=== PATIENT | male | born 1990 | race Caucasian/White ===

== ENCOUNTER 2016-03-10 15:57 | Emergency (ER) | payer OTHER ==
[~2016-03-10] VITALS: Ht 188 cm; Wt 97.5 kg
[~2016-03-10 15:57] MED LIST: CLON2TAB; HYDR-548
[2016-03-10 16:06] VITALS: BP 151/96
[2016-03-10] MEDS ORDERED: LORAZEPAM 1 MG TABLET ONE (16:44)
[2016-03-10] MEDS ORDERED: oxyCODONE/APAP (5/325 MG) 1 UDTAB TABLET ONE (16:44)
[2016-03-10] MEDS: oxyCODONE/APAP (5/325 MG) 1 UDTAB TABLET PO ONE (16:49)
[2016-03-10] MEDS: LORAZEPAM 1 MG TABLET PO ONE (16:49)
== END 2016-03-10 16:52 | disposition home or self-care (01) ==
LOC: ER 16:00
DX: M54.9 Dorsalgia, unspecified (principal); G89.29 Other chronic pain; F32.9 Major depressive disorder, single episode, unspecified; F41.9 Anxiety disorder, unspecified; Z88.1 Allergy status to other antibiotic agents; Z59.0 Homelessness
CPT/HCPCS: 99283; A4606; Z7610

== ENCOUNTER 2016-04-17 16:35 | Emergency (ER) | payer MEDICAID, OTHER ==
[~2016-04-17] VITALS: Ht 188 cm; Wt 97.5 kg
[2016-04-17 16:50] VITALS: BP 128/74
== END 2016-04-17 17:55 | disposition home or self-care (01) ==
LOC: ER 16:38
DX: M54.6 Pain in thoracic spine (principal); G89.29 Other chronic pain; F41.9 Anxiety disorder, unspecified; Z88.1 Allergy status to other antibiotic agents; F10.10 Alcohol abuse, uncomplicated; F32.9 Major depressive disorder, single episode, unspecified
CPT/HCPCS: 99281; A4606; Z7610; Z7502

== ENCOUNTER 2016-04-29 12:33 | Emergency (ER) | payer MEDICAID ==
[~2016-04-29] VITALS: Ht 188 cm; Wt 97.5 kg
[2016-04-29 12:39] VITALS: BP 162/87
[2016-04-29] MEDS ORDERED: oxyCODONE/APAP (5/325 MG) 1 UDTAB TABLET ONE (13:10)
[2016-04-29] MEDS ORDERED: oxyCODONE/APAP (5/325 MG) 1 UDTAB TABLET PO ONE (13:30)
== END 2016-04-29 13:16 | disposition home or self-care (01) ==
LOC: ER 12:35
DX: G89.29 Other chronic pain (principal); F41.9 Anxiety disorder, unspecified; F32.9 Major depressive disorder, single episode, unspecified; Z88.1 Allergy status to other antibiotic agents; F10.10 Alcohol abuse, uncomplicated
CPT/HCPCS: 99282; A4606; Z7610

== ENCOUNTER 2016-05-05 05:50 | Emergency (ER) | payer MEDICAID ==
[~2016-05-05] VITALS: Ht 188 cm; Wt 97.5 kg
[2016-05-05 06:05] VITALS: BP 153/83
[2016-05-05] MEDS ORDERED: HYDROCODONE/APAP 10/325MG 1 EA TABLET ONE (06:28)
[2016-05-05] MEDS ORDERED: HYDROCODONE/APAP 10/325MG 1 EA TABLET PO ONE (06:30)
== END 2016-05-05 06:30 | disposition home or self-care (01) ==
LOC: ER 05:52
DX: M54.9 Dorsalgia, unspecified (principal); G89.29 Other chronic pain; F41.9 Anxiety disorder, unspecified; F32.9 Major depressive disorder, single episode, unspecified; Z88.8 Allergy status to other drugs, medicaments and biological substances; Z76.5 Malingerer [conscious simulation]
CPT/HCPCS: A4606; Z7610

== ENCOUNTER 2016-05-11 01:15 | Emergency (ER) | payer MEDICAID ==
[~2016-05-11] VITALS: Ht 188 cm; Wt 97.5 kg
[2016-05-11 01:21] VITALS: BP 151/86
[2016-05-11] MEDS ORDERED: HYDROCODONE/APAP 10/325MG 1 EA TABLET PO ONE (02:00)
[2016-05-11] MEDS ORDERED: HYDROCODONE/APAP 10/325MG 1 EA TABLET ONE (02:00)
== END 2016-05-11 02:12 | disposition home or self-care (01) ==
LOC: ER 01:15
DX: G89.29 Other chronic pain (principal); Z76.5 Malingerer [conscious simulation]; Z88.8 Allergy status to other drugs, medicaments and biological substances
CPT/HCPCS: 99283; A4606; Z7610

== ENCOUNTER 2016-11-03 18:53 | Emergency (ER) | payer MEDICAID, OTHER ==
[~2016-11-03] VITALS: Ht 188 cm; Wt 99.8 kg
[2016-11-03 19:14] VITALS: BP 152/75
== END 2016-11-03 19:47 | disposition home or self-care (01) ==
LOC: ER 18:55
DX: Z76.5 Malingerer [conscious simulation] (principal); Z88.1 Allergy status to other antibiotic agents
CPT/HCPCS: A4606; Z7502; Z7610

== ENCOUNTER 2016-11-12 14:24 | Emergency (ER) | payer OTHER ==
[~2016-11-12] VITALS: Ht 188 cm; Wt 99.8 kg
[2016-11-12 14:24] VITALS: BP 132/77
== END 2016-11-12 15:01 | disposition home or self-care (01) ==
LOC: ER 14:25
DX: Z76.0 Encounter for issue of repeat prescription (principal); M54.5 Low back pain; G89.29 Other chronic pain; Z76.5 Malingerer [conscious simulation]
CPT/HCPCS: A4606; Z7502; Z7610

== ENCOUNTER 2016-11-19 08:47 | Emergency (ER) | payer OTHER ==
[~2016-11-19] VITALS: Ht 188 cm; Wt 102.1 kg
[2016-11-19 08:53] VITALS: BP 131/69
[2016-11-19] MEDS ORDERED: ONDANSETRON 4 MG TAB.RAPDIS ONE (09:23)
[2016-11-19] MEDS ORDERED: HYDROCODONE/APAP 10/325MG 1 EA TABLET ONE (09:23)
[2016-11-19] MEDS ORDERED: HYDROCODONE/APAP 10/325MG 1 EA TABLET PO ONE (09:30)
[2016-11-19] MEDS ORDERED: ONDANSETRON 4 MG TAB.RAPDIS SL ONE (09:30)
== END 2016-11-19 10:18 | disposition home or self-care (01) ==
LOC: ER 08:48
DX: S93.401A Sprain of unspecified ligament of right ankle, initial encounter (principal); Z76.5 Malingerer [conscious simulation]; Z88.1 Allergy status to other antibiotic agents; X58.XXXA Exposure to other specified factors, initial encounter; Y93.89 Activity, other specified; Y92.89 Other specified places as the place of occurrence of the external cause; Y99.8 Other external cause status
CPT/HCPCS: 73610; 73630; 99284; A4606; Q0162; Z7610

== ENCOUNTER 2016-12-01 11:26 | Emergency (ER) | payer OTHER ==
[~2016-12-01] VITALS: Ht 188 cm; Wt 99.8 kg
[2016-12-01 11:41] VITALS: BP 154/98
[2016-12-01] MEDS ORDERED: KETOROLAC TROMETHAMINE INJ 30 MG/ML VIAL ONE (12:08)
[2016-12-01] MEDS ORDERED: KETOROLAC TROMETHAMINE INJ 60 MG/2 ML VIAL IM ONE (12:30)
== END 2016-12-01 12:28 | disposition home or self-care (01) ==
LOC: ER 11:30
DX: M54.5 Low back pain (principal); G89.29 Other chronic pain; F10.10 Alcohol abuse, uncomplicated; Z88.8 Allergy status to other drugs, medicaments and biological substances
CPT/HCPCS: 99282; A4606; Z7610; J1885

== ENCOUNTER 2017-04-25 12:07 | Emergency (ER) | payer OTHER ==
[~2017-04-25] VITALS: Ht 188 cm; Wt 99.8 kg
[2017-04-25 12:28] VITALS: BP 146/78
[2017-04-25] MEDS ORDERED: clonazePAM 1 MG TABLET PO ONE (13:00)
[2017-04-25] MEDS ORDERED: clonazePAM 1 MG TABLET ONE (13:03)
--- NOTE | 2017-04-25 13:34 | NUR ---
PENDING DISCHARGE. PT NOT FOUND IN HIS CHAIR. [employer] WORK DIRECTOR NOTIFIED
== END 2017-04-25 13:55 | disposition home or self-care (01) ==
LOC: ER 12:12
DX: F41.0 Panic disorder [episodic paroxysmal anxiety] (principal); G89.29 Other chronic pain; F10.10 Alcohol abuse, uncomplicated; M54.9 Dorsalgia, unspecified; Z59.0 Homelessness; Z76.5 Malingerer [conscious simulation]; Z88.8 Allergy status to other drugs, medicaments and biological substances
CPT/HCPCS: A4606; Z7610

== ENCOUNTER 2017-05-09 12:20 | Emergency (ER) | payer OTHER ==
[~2017-05-09] VITALS: Ht 188 cm; Wt 99.8 kg
[2017-05-09 13:17] VITALS: BP 169/93
[2017-05-09] MEDS ORDERED: HYDROCODONE/APAP 10/325MG 1 EA TABLET ONE (14:20)
[2017-05-09] MEDS ORDERED: HYDROCODONE/APAP 10/325MG 1 EA TABLET PO ONE (14:30)
== END 2017-05-09 14:26 | disposition home or self-care (01) ==
LOC: ER 12:21
DX: M54.5 Low back pain (principal); G89.29 Other chronic pain; Z76.5 Malingerer [conscious simulation]; F41.9 Anxiety disorder, unspecified; F10.10 Alcohol abuse, uncomplicated
CPT/HCPCS: A4606; Z7610

== ENCOUNTER 2017-05-26 11:29 | Emergency (ER) | payer OTHER ==
[~2017-05-26] VITALS: Ht 188 cm; Wt 99.8 kg
[2017-05-26 11:29] VITALS: BP 160/110
[2017-05-26] MEDS ORDERED: KETOROLAC TROMETHAMINE 15 MG/ML VIAL ONE (11:40)
[2017-05-26] MEDS ORDERED: KETOROLAC TROMETHAMINE INJ 30 MG/ML VIAL IM ONE (12:00)
== END 2017-05-26 12:14 | disposition home or self-care (01) ==
LOC: ER 11:30
DX: G89.29 Other chronic pain (principal); M54.5 Low back pain; F41.9 Anxiety disorder, unspecified; F10.10 Alcohol abuse, uncomplicated
CPT/HCPCS: A4606; J1885; Z7610

== ENCOUNTER 2017-06-26 16:20 | Emergency (ER) | payer OTHER ==
[~2017-06-26] VITALS: Ht 182.9 cm; Wt 74.8 kg
[2017-06-26 16:36] VITALS: BP 141/84
== END 2017-06-26 16:56 | disposition home or self-care (01) ==
LOC: ER 16:21
DX: G89.29 Other chronic pain (principal); M54.5 Low back pain; Z76.5 Malingerer [conscious simulation]; F41.9 Anxiety disorder, unspecified
CPT/HCPCS: A4606; Z7502; Z7610

== ENCOUNTER 2017-08-14 19:51 | Emergency (ER) | payer OTHER ==
[~2017-08-14] VITALS: Ht 188 cm; Wt 99.8 kg
[2017-08-14 19:58] VITALS: BP 158/93
== END 2017-08-14 23:47 | disposition left against medical advice (07) ==
LOC: ER 19:51
DX: G89.29 Other chronic pain (principal); I10 Essential (primary) hypertension; F10.10 Alcohol abuse, uncomplicated; Y90.9 Presence of alcohol in blood, level not specified; Z60.2 Problems related to living alone
CPT/HCPCS: A4606; Z7502; Z7610

== ENCOUNTER 2017-10-15 01:51 | Emergency (ER) | payer OTHER ==
[~2017-10-15] VITALS: Ht 188 cm; Wt 99.8 kg
[2017-10-15 01:55] VITALS: BP 156/110
--- NOTE | 2017-10-15 04:15 | NUR ---
CALLED PT'S NAMES THREE TIMES, NO RESPONSE. WILL TRY AGAIN AT A LATER TIME.
--- NOTE | 2017-10-15 05:16 | NUR ---
CALLED PT'S NAME THREE TIMES, NO RESPONSE. MADE AWARE.
--- NOTE | 2017-10-15 05:48 | NUR ---
CALLED PT'S NAME THREE TIMES, NO RESPONSE AND NO EYE CONTACT BY ANY PERSON IN THE WAITING ROOM. A MAN IN A HOODIE NOTED TO BE SLEEPING WITH NO ARMBAND SEEN. MADE AWARE. WILL TRY AGAIN AT A LATER TIME.
--- NOTE | 2017-10-15 06:24 | NUR ---
pt bib self c/o 10/10 lower back pain. per pt statement has had a herniated disk and is on percocet at home to help with the back pain. pt resting in bed comfortably. no s/s of acute distress or sob noted. being seen by .
[2017-10-15] MEDS ORDERED: oxyCODONE/APAP (5/325 MG) 1 UDTAB TABLET PO ONE (06:30)
[2017-10-15] MEDS ORDERED: oxyCODONE/APAP (5/325 MG) 1 UDTAB TABLET ONE (06:31)
--- NOTE | 2017-10-15 06:40 | NUR ---
percocet 5/325mg 1 tab given po
--- NOTE | 2017-10-15 06:45 | NUR ---
Patient discharged to home in stable condition. Written and verbal after care instructions given. Patient verbalizes understanding of instruction. Instructed patient not to drive, patient stated that he took the bus to the ER and will take the bus back home. Pateint left walking with steady gait. No s/s of acute distress or sob noted.
== END 2017-10-15 06:54 | disposition home or self-care (01) ==
LOC: ER 01:52
DX: M54.5 Low back pain (principal); G89.29 Other chronic pain; I10 Essential (primary) hypertension; Z60.2 Problems related to living alone
CPT/HCPCS: 99282; A4606; Z7610

== ENCOUNTER 2017-10-26 02:09 | Emergency (ER) | payer OTHER ==
[~2017-10-26] VITALS: Ht 182.9 cm; Wt 111.1 kg
--- NOTE | 2017-10-26 03:00 | NUR ---
CALLED PT'S NAME THREE TIMES, NO RESPONSE IN WAITING ROOM, WILL TRY AGAIN AT A LATER TIME.
--- NOTE | 2017-10-26 04:01 | NUR ---
CALLED PT'S NAME THREE TIMES, NO RESPONSE IN WAITING ROOM
[2017-10-26 05:41] VITALS: BP 139/69
[2017-10-26] MEDS ORDERED: oxyCODONE/APAP (5/325 MG) 1 UDTAB TABLET ONE (06:29)
[2017-10-26] MEDS ORDERED: oxyCODONE/APAP (5/325 MG) 1 UDTAB TABLET PO ONE (06:30)
[2017-10-26] MEDS: oxyCODONE/APAP (5/325 MG) 1 UDTAB TABLET PO ONE (06:43)
--- NOTE | 2017-10-26 06:43 | NUR ---
Patient discharged to home in stable condition. Written and verbal after care instructions given. Patient verbalizes understanding of instruction. PT AMBULATED WITH STEADY GAIT NOTED.
== END 2017-10-26 06:45 | disposition home or self-care (01) ==
LOC: ER 02:09
DX: G89.29 Other chronic pain (principal); M54.5 Low back pain; I10 Essential (primary) hypertension; F10.10 Alcohol abuse, uncomplicated; Y90.9 Presence of alcohol in blood, level not specified; Z60.2 Problems related to living alone
CPT/HCPCS: A4606; Z7610

== ENCOUNTER 2017-11-15 13:07 | Emergency (ER) | payer OTHER ==
[~2017-11-15] VITALS: Ht 177.8 cm; Wt 83.9 kg
[2017-11-15 13:30] VITALS: BP 134/74
[2017-11-15] MEDS ORDERED: oxyCODONE/APAP (5/325 MG) 1 UDTAB TABLET ONE (13:45)
[2017-11-15] MEDS ORDERED: oxyCODONE/APAP (5/325 MG) 1 UDTAB TABLET PO ONE (14:00)
== END 2017-11-15 14:05 | disposition home or self-care (01) ==
LOC: ER 13:11
DX: G89.29 Other chronic pain (principal); M54.5 Low back pain; I10 Essential (primary) hypertension; Z60.2 Problems related to living alone
CPT/HCPCS: 99282; A4606; Z7610

== ENCOUNTER 2018-02-08 15:15 | Emergency (ER) | payer OTHER ==
[~2018-02-08] VITALS: Ht 188 cm; Wt 99.8 kg
[~2018-02-08 15:15] MED LIST changes: +HYDR-4354; -HYDR-548
[2018-02-08 15:43] VITALS: BP 142/76
--- NOTE | 2018-02-08 15:45 | NUR ---
PT BIB SELF MED-REFILL FOR PERCOCET FOR HIS SCIATICA, PT IS AAOX4, NOT IN RESPIRATORY DISTRESS, V/S STABLE, KEPT RESTED AND COMFORTABLE.
[2018-02-08] MEDS ORDERED: HYDROCODONE/APAP 5/325MG 1 EACH TABLET PO ONE (16:00)
--- NOTE | 2018-02-08 16:02 | NUR ---
PT TRY TO HIDE THE PAIN MEDICATION IN THE POCKET (NORCO 5-325), THEN TOLD THE PATIENT TO DRINK THE PAIN MED, REPORTED TO CHARGE NURSE.
[2018-02-08] MEDS ORDERED: HYDROCODONE/APAP 5/325MG 1 EACH TABLET ONE (16:03)
--- NOTE | 2018-02-08 17:01 | NUR ---
Patient discharged to home in stable condition. Written and verbal after care instructions given. Patient verbalizes understanding of instruction.
== END 2018-02-08 17:02 | disposition home or self-care (01) ==
LOC: ER 15:16
DX: G89.29 Other chronic pain (principal); Z76.5 Malingerer [conscious simulation]; M54.30 Sciatica, unspecified side; I10 Essential (primary) hypertension; F41.0 Panic disorder [episodic paroxysmal anxiety]; Z98.890 Other specified postprocedural states; Z60.2 Problems related to living alone
CPT/HCPCS: A4606; Z7610

== ENCOUNTER 2018-03-16 19:26 | Emergency (ER) | payer OTHER ==
[~2018-03-16] VITALS: Ht 188 cm; Wt 99.8 kg
[2018-03-16 19:31] VITALS: BP 153/114
[2018-03-16] MEDS ORDERED: KETOROLAC TROMETHAMINE INJ 60 MG/2 ML VIAL IM ONE ×2 (19:50→20:00)
== END 2018-03-16 19:59 | disposition home or self-care (01) ==
LOC: ER 19:28
DX: G89.29 Other chronic pain (principal); M54.41 Lumbago with sciatica, right side; M54.42 Lumbago with sciatica, left side; I10 Essential (primary) hypertension; F43.0 Acute stress reaction; Z60.2 Problems related to living alone
CPT/HCPCS: 96372; 99283; A4606; J1885; Z7610

== ENCOUNTER 2018-04-04 14:02 | Emergency (ER) | payer MEDICAID, OTHER ==
[~2018-04-04] VITALS: Ht 188 cm; Wt 99.8 kg
[2018-04-04 14:16] VITALS: BP 170/104
[2018-04-04] MEDS ORDERED: KETOROLAC TROMETHAMINE INJ 30 MG/ML VIAL ONE (14:37)
[2018-04-04] MEDS ORDERED: LORAZEPAM 1 MG TABLET ONE (14:37)
[2018-04-04] MEDS ORDERED: KETOROLAC TROMETHAMINE INJ 60 MG/2 ML VIAL IM ONE (15:00)
[2018-04-04] MEDS ORDERED: LORAZEPAM 1 MG TABLET PO ONE (15:00)
== END 2018-04-04 14:49 | disposition home or self-care (01) ==
LOC: ER 14:06
DX: M54.42 Lumbago with sciatica, left side (principal); M54.41 Lumbago with sciatica, right side; I10 Essential (primary) hypertension; F41.0 Panic disorder [episodic paroxysmal anxiety]; Z98.890 Other specified postprocedural states; Z60.2 Problems related to living alone; Z79.899 Other long term (current) drug therapy
CPT/HCPCS: 96372; 99283; A4606; J1885

== ENCOUNTER 2018-04-11 04:35 | Emergency (ER) | payer MEDICAID ==
[~2018-04-11] VITALS: Ht 175.3 cm; Wt 93.4 kg
[2018-04-11 04:47] VITALS: BP 182/104
== END 2018-04-11 07:00 | disposition home or self-care (01) ==
LOC: ER 04:36
DX: G89.29 Other chronic pain (principal); M54.5 Low back pain; F41.9 Anxiety disorder, unspecified; I10 Essential (primary) hypertension; F41.0 Panic disorder [episodic paroxysmal anxiety]; Z60.2 Problems related to living alone
CPT/HCPCS: 99283; A4606

== ENCOUNTER 2018-06-08 03:12 | Emergency (ER) | payer MEDICAID ==
[~2018-06-08] VITALS: Ht 188 cm; Wt 99.8 kg
[2018-06-08 03:27] VITALS: BP 154/108
[2018-06-08] MEDS ORDERED: ONDANSETRON 4 MG TAB.RAPDIS ONE (03:43)
--- NOTE | 2018-06-08 03:51 | NUR ---
Patient given written and verbal discharge instructions. Patient verbalizes understanding of instructions. Patient is ambulatory with steady gait. Refuses offer of intermediate placement. Patient given list of available shelters in surrounding area.
[2018-06-08] MEDS ORDERED: ONDANSETRON 4 MG TAB.RAPDIS SL ONE (04:00)
== END 2018-06-08 03:55 | disposition home or self-care (01) ==
LOC: ER 03:12
DX: R11.0 Nausea (principal); M54.40 Lumbago with sciatica, unspecified side; G89.29 Other chronic pain; I10 Essential (primary) hypertension; F41.0 Panic disorder [episodic paroxysmal anxiety]; Z60.2 Problems related to living alone; Z76.5 Malingerer [conscious simulation]
CPT/HCPCS: 99283; Q0162

== ENCOUNTER 2018-06-26 17:33 | Emergency (ER) | payer MEDICAID ==
[~2018-06-26] VITALS: Ht 188 cm; Wt 113.4 kg
[2018-06-26 18:56] VITALS: BP 162/110
--- NOTE | 2018-06-26 19:30 | NUR ---
pt bibself from home, c/o lower back pain from his sciatica. Per pt statement was out of his percocet meds. Pt is a/ox4, verbal, able to make needs known. Pt is resting comfortably in bed. No s/s of acute distress or sob noted. Waiting to be seen by .
== END 2018-06-26 20:19 | disposition home or self-care (01) ==
LOC: ER 17:33
DX: M54.40 Lumbago with sciatica, unspecified side (principal); G89.29 Other chronic pain; I10 Essential (primary) hypertension; F41.0 Panic disorder [episodic paroxysmal anxiety]; F12.10 Cannabis abuse, uncomplicated; Z60.2 Problems related to living alone; Z76.5 Malingerer [conscious simulation]

== ENCOUNTER 2018-07-01 16:27 | Emergency (ER) | payer MEDICAID ==
[~2018-07-01] VITALS: Ht 182.9 cm; Wt 90.7 kg
[2018-07-01 16:36] VITALS: BP 145/95
[2018-07-01] MEDS ORDERED: KETOROLAC TROMETHAMINE INJ 60 MG/2 ML VIAL IM ONE ×3 (16:56→17:00)
== END 2018-07-01 17:04 | disposition home or self-care (01) ==
LOC: ER 16:29
DX: G89.29 Other chronic pain (principal); M54.9 Dorsalgia, unspecified; M54.30 Sciatica, unspecified side; F41.9 Anxiety disorder, unspecified; I10 Essential (primary) hypertension; F12.10 Cannabis abuse, uncomplicated; Z60.2 Problems related to living alone; Z76.5 Malingerer [conscious simulation]
CPT/HCPCS: 96372; 99283; J1885

== ENCOUNTER 2018-07-16 16:14 | Emergency (ER) | payer SELFPAY ==
[~2018-07-16] VITALS: Ht 188 cm; Wt 99.8 kg
[2018-07-16 16:18] VITALS: BP 155/78
[2018-07-16] MEDS ORDERED: IBUPROFEN 200 MG TABLET ONE (16:28)
[2018-07-16] MEDS ORDERED: IBUPROFEN 400 MG TABLET PO ONE (16:30)
== END 2018-07-16 16:35 | disposition home or self-care (01) ==
LOC: ER 16:18
DX: M54.5 Low back pain (principal); Z76.5 Malingerer [conscious simulation]; I10 Essential (primary) hypertension; F41.0 Panic disorder [episodic paroxysmal anxiety]; Z98.890 Other specified postprocedural states; Z60.2 Problems related to living alone; Z79.899 Other long term (current) drug therapy